=== PATIENT | female | born 1965 ===

== ENCOUNTER 2017-04-03 02:00 | Emergency (ER) | payer SELFPAY ==
[2017-04-03 02:11] VITALS: BP 98/61; PULSE 68; RESP 20; TEMP 99; O2SAT 100
[2017-04-03] MEDS ORDERED: Sodium Chloride 0.9% 1,000 ML IV STA (02:39)
--- NOTE | 2017-04-03 03:03 | ED PDOC ---
Upper Extremity Pain/Injury Time Seen by Provider: 04/03/17 02:09 Chief Complaint (Nursing): GI Problem Chief Complaint (Provider): right arm pain History Per: Patient History/Exam Limitations: no limitations Onset/Duration Of Symptoms: Hrs Current Symptoms Are (Timing): Better Additional Complaint(s): 51 y/o female history of Cspine disc herniation presents with pain to right upper extremity x 3 hours. Patient states she usually wears a wrist brace for her pinched nerve but is sleeping at her cousins so did not bring it. Tonight while watching tv she noted pain to right side of neck, behind right shoulder, and down right arm. Patient states pain was so intense that it made her nauseous, and had the cold sweats. Patient took two Aleeve with improvement of pain and other symptoms. Denies headache, dizziness, new extremity numbness/ weakness, chest pain, shortness of breath, palpitations, abdominal pain, leg pain/swelling. Past Medical History Reviewed: Historical Data, Nursing Documentation, Vital Signs Vital Signs: Last Vital Signs Temp 99 F 04/03/17 02:10 Pulse 68 04/03/17 02:10 Resp 20 04/03/17 02:10 BP 98/61 L 04/03/17 02:10 Pulse Ox 100 04/03/17 02:10 - Medical History Other PMH: cspine disc herniation - Surgical History Surgical History: No Surg Hx - Family History Family History: States: Unknown Family Hx - Living Arrangements Living Arrangements: With Family - Allergies Allergies/Adverse Reactions: Allergies Allergy/AdvReac Type Severity Reaction Status Date / Time No Known Allergies Allergy Verified 04/03/17 02:11 Review of Systems ROS Statement: Except As Marked, All Systems Reviewed And Found Negative Musculoskeletal: Positive for: Neck Pain, Arm Pain Physical Exam - Reviewed Nursing Documentation Reviewed: Yes Vital Signs Reviewed: Yes - Physical Exam Appears: Positive for: Well, Non-toxic, No Acute Distress Head Exam: Positive for: ATRAUMATIC, NORMAL INSPECTION, NORMOCEPHALIC Skin: Positive for: Normal Color Eye Exam: Positive for: Normal appearance, EOMI, PERRL ENT: Positive for: Normal ENT Inspection Cardiovascular/Chest: Positive for: Regular Rate, Rhythm Respiratory: Positive for: Normal Breath Sounds Back: Positive for: Muscle Spasm (right cspine paraspinals, right trapezius) Extremity: Negative for: Normal ROM (limited ROM flexion/extension right upper extremity due to pain (patient notes not new finding)), Calf Tenderness, Deformity, Swelling Neurologic/Psych: Positive for: Alert, Oriented. Negative for: Motor/Sensory Deficits - Laboratory Results Result Diagrams: 04/03/17 02:41 04/03/17 02:41 - ECG ECG: Positive for: Viewed By Me (reviewed by ED attending) ECG Rhythm: Positive for: Sinus Bradycardia O2 Sat by Pulse Oximetry: 100 - Progress ED Course And Treament: ekg, labs, IV fluids Patient declines pain medication at this time, pain now 4/10. On re-eval, patient resting comfortably; states nausea resolved and pain improved. Patient educated on findings, discharged with instructions to follow up PMD 2-3 days. Patient states she has Aleve at home she can take for pain. Return to ED for worsening/concerning symptoms. Disposition - Clinical Impression Clinical Impression: Cervical radiculopathy - Patient ED Disposition Is Patient to be Admitted: No Counseled Patient/Family Regarding: Studies Performed, Diagnosis, Need For Followup - Disposition Referrals: [facility] [Outside] Disposition: Routine/Home Disposition Time: 03:56 Condition: IMPROVED Instructions: Cervical Radiculopathy (ED) Print Language: FRISIAN
[2017-04-03 03:04] LABS: BASO % 0.5 % (0.0-2.0); EOS # 0.1 K/uL (0.0-0.7); EOS % 1.4 % (0.0-4.0); HEMOGLOBIN 12.6 g/dL (12.0-16.0); LYMPH # 2.3 K/uL (1.0-4.3); LYMPH % 27.7 % (20.0-40.0); MEAN CELL VOLUME 87.6 fl (81.0-99.0); MEAN CORPUSCULAR HGB CONC 33.1 g/dL (33.0-37.0); MEAN PLATELET VOLUME 7.4 fl (7.2-11.7); MONO # 0.4 K/uL (0.0-0.8); MONO % 4.7 % (0.0-10.0); NEUT # 5.5 K/uL (1.8-7.0); NEUT % 65.7 % (50.0-75.0); NRBC % 0.2 % (0.0-0.0); RBC 4.34 Mil/uL (3.80-5.20); WHITE BLOOD COUNT 8.4 K/uL (4.8-10.8)
[2017-04-03 03:07] LABS: ALB/GLOB RATIO 1.3 (1.0-2.1); ALBUMIN 3.9 g/dL (3.5-5.0); ALT/SGPT 48 U/L (9-52); AST/SGOT 34 U/L (14-36); BLOOD UREA NITROGEN 25 mg/dl (7-17); CALCIUM 9.1 mg/dL (8.4-10.2); GFR AFRICAN-AMERICAN > 60; GFR NON-AFRICAN AMERICAN > 60
== END 2017-04-03 04:00 | disposition home or self-care (01) ==
LOC: H.ER 02:00
DX: M54.12 Radiculopathy, cervical region (principal)
CPT/HCPCS: 80053; 84484; 85025; 99282; J7040